=== PATIENT | female | born 1955 | race Caucasian/White ===

== ENCOUNTER 2016-06-04 14:12 | Inpatient (IN) | payer MEDICAID ==
--- NOTE | 2016-06-04 14:44 | EDPRACDOC ---
<Kellen Moe - Last Filed: 06/04/16 16:40> - General Information Information Source: Patient - History of Present Illness Onset: SEVERAL DAYS HPI: PT REPORTS SWELLING, REDNESS, PAIN TO LEFT LOWER LEG X SEVERAL DAYS, NO KNOWN INJURY. Mechanism: Reports: None Circumstances: Reports: Spontaneous History of: Reports: None Severity: Reports: Severe Able to Bear Weight: Limited Associated Signs & Symptoms: Reports: Swelling Pain In: Reports: Leg <Michael Floresson - Last Filed: 06/04/16 17:14> - General Information Chief Complaint: Lower Leg Pain Stated Complaint: REDNESS TO LT LEG DIABETIC Time Seen by Provider: 06/04/16 14:38 Home Medications: Home Medications Albuterol Sulfate [Ventolin Hfa] 1 - 2 puff INH Q4H PRN 06/04/16 Aspirin (Enteric Coated) [Ecotrin] 81 mg PO DAILY 06/04/16 Fluticasone/Salmeterol [Advair 250-50] 1 puff INH BID 06/04/16 Furosemide [Lasix] 20 mg PO DAILY 06/04/16 Lisinopril [Zestril] 2.5 mg PO DAILY 06/04/16 Metformin HCl 1,000 mg PO BID 06/04/16 Potassium Chloride [Klor-Con M10] 10 meq PO DAILY 06/04/16 Simvastatin 40 mg PO QHS 06/04/16 Allergies/Adverse Reactions: Allergies Allergy/AdvReac Type Severity Reaction Status Date / Time No Known Allergies Allergy Verified 06/04/16 14:17 ED Past Medical History - History Reviewed Yes Nurses notes reviewed and agree except as marked - Patient Medical History Cardiac History: Reports: Hypertension, Hypercholesterolemia Respiratory History: Reports: COPD Psychological History: Denies: Depression Systemic History: Reports: Diabetes Surgical History: Reports: Tonsillectomy/Adnoidectomy. Denies: Hysterectomy - Social Medical History Smoking Status: Never smoker ETOH: None Substance Abuse: None <Gonzalo Flores - Last Filed: 06/04/16 17:14> EDM Review of Systems - Review of Systems Constitutional: negative: Chills, Fever Eyes: negative: Blurred Vision, Double Vision Ears: negative: Drainage Throat: negative: Pain Nose: negative: Congestion, Discharge Respiratory: Cough. negative: Shortness of Breath, Wheezing Cardiovascular: negative: Chest Pain, Palpitations Gastrointestinal: negative: Diarrhea, Nausea, Pain, Vomiting Genitourinary: negative: Dysuria, Frequency Neurological: negative: Dizziness, Headache, Numbness, Weakness Musculoskeletal: Leg Integumentary: No Symptoms Reported <Gonzalo Flores - Last Filed: 06/04/16 17:14> - Physical Exam Last recorded Vital Signs: Last Vital Signs Temp 102.2 F H 06/04/16 14:14 Pulse 92 06/04/16 14:14 Resp 20 06/04/16 14:14 BP 202/91 H 06/04/16 14:14 Pulse Ox 95 06/04/16 14:14 Oxygen Pulse Oxygen Saturation 95 O2 Device Nasal Cannula Oxygen Flow Rate 2 Fraction of Inspired Oxygen ( FIO2) <Kellen Moe - Last Filed: 06/04/16 16:40> - Physical Exam Constitutional: Alert (Awake), No apparent distress Oriented to: Time, Person, Place Last recorded Vital Signs: Last Vital Signs Temp 102.2 F H 06/04/16 14:14 Pulse 92 06/04/16 14:14 Resp 20 06/04/16 14:14 BP 202/91 H 06/04/16 14:14 Pulse Ox 95 06/04/16 14:14 Oxygen Pulse Oxygen Saturation 95 O2 Device Nasal Cannula Oxygen Flow Rate 2 Fraction of Inspired Oxygen ( FIO2) - HEENT Head: Normal ( normocephalic) Eye Exam: Normal (PERRL, EOMI, Sclera white) Oropharynx: Normal (Pharynx:Moist without exudate,Gums-no swelling) Tympanic Membrane: Normal ENT EAC: Normal TMJ: Normal Nose: No Symptoms Reported (septum midline) Neck: Normal (FROM, trachea at midline) - Respiratory/Cardiovascular Respiratory: Normal - CTA (BBS clear to auscultation without adventitious sounds ) Cardiovascular: Normal (RRR without murmur, gallop or rub) - GI Auscultation: Normal (NABS) Palpation: Normal (Soft,No rebound or guarding, non distended) Tenderness: Non tender Willett's Sign: Negative - Musculoskeletal Extremities: Edema - Integumentary Skin: Warm, Dry, Other (DIFFUSE ERYTHEMA LEFT LOWER LEG) - Neurologic Memory Impaired: Normal Motor Function: Normal (Normal tone, Pulses 2+ No cyanosis or edema, FROM) Cranial Nerve: Normal (CN II-X11 intact sensation, strength 5/5) Cerebellar: Normal Mood Description: Normal Perception: Normal <Gonzalo Flores - Last Filed: 06/04/16 17:14> ED Low Extremities Phys Exam - Thigh Left Thigh Symptoms: Normal - Knee Left Knee Symptoms: Normal - Lower Leg Left Lower Leg Symptoms: Swelling, Moderate Tenderness, Other (DIFFUSE ERYTHEMA FROM FOOT TO KNEE, MINIMAL CLEAR DISCHARGE) - Foot Left Foot Symptoms: Swelling - Ankle Left Ankle Symptoms: Normal Achilles Tendon: Normal - Deficits Deficits: None, Capillary Refill. negative: Motor, Sensory, Pulse <Gonzalo Flores - Last Filed: 06/04/16 17:14> - Re-evaluation Re-evaluation 1 Re-evaluation Time: 16:41 (FEELING A LITTLE BETTER) - Results 06/04/16 15:35 06/04/16 15:48 WBC 26.9 xk/uL (3.8-10.8) H 06/04/16 15:35 RBC 3.98 xM/uL (4.20-5.40) L 06/04/16 15:35 Hgb 11.8 g/dL (12.0-16.0) L 06/04/16 15:35 Hct 35.1 % (36-47) L 06/04/16 15:35 MCV 88 fL (81-99) 06/04/16 15:35 MCH 29.7 pg (27-32) 06/04/16 15:35 MCHC 33.7 g/dl (33-36) 06/04/16 15:35 RDW 14.6 % (11.5-14.5) H 06/04/16 15:35 Plt Count 207 xk/uL (130-400) 06/04/16 15:35 MPV 10.0 fL (7.4-10.4) 06/04/16 15:35 Sodium 135 mEq/L (137-146) L 06/04/16 15:48 Potassium 4.0 mEq/L (3.5-5.1) 06/04/16 15:48 Chloride 93 mEq/L (98-107) L 06/04/16 15:48 Carbon Dioxide 31 mMOL/L (22-33) 06/04/16 15:48 Anion Gap 15 mEq/L (8-16) 06/04/16 15:48 BUN 18 MG/DL (7-17) H 06/04/16 15:48 Creatinine 0.80 MG/DL (0.52-1.04) 06/04/16 15:48 Estimated GFR (MDRD) > 60 mL/min (>=60) 06/04/16 15:48 Glucose 236 mg/dL (70-99) H 06/04/16 15:48 Calculated Osmolality 270 MOs/Kg (270-290) 06/04/16 15:48 Lactic Acid 1.2 mEq/L (0.7-2.1) 06/04/16 15:48 Calcium 9.0 MG/DL (8.4-10.2) 06/04/16 15:48 Total Bilirubin 1.0 MG/DL (0.2-1.3) 06/04/16 15:48 AST 60 IU/L (14-36) H 06/04/16 15:48 ALT 34 IU/L (9-52) 06/04/16 15:48 Alkaline Phosphatase 106 IU/L (55-165) 06/04/16 15:48 Total Protein 7.5 G/DL (6.3-8.2) 06/04/16 15:48 Albumin 4.0 G/DL (3.5-5.0) 06/04/16 15:48 Lab Results 06/04/16 06/04/16 06/04/16 15:48 15:48 15:35 WBC 26.9 H RBC 3.98 L Hgb 11.8 L Hct 35.1 L MCV 88 MCH 29.7 MCHC 33.7 RDW 14.6 H Plt Count 207 MPV 10.0 Sodium 135 L Potassium 4.0 Chloride 93 L Carbon Dioxide 31 Anion Gap 15 BUN 18 H Creatinine 0.80 Estimated GFR (MDRD) > 60 Glucose 236 H Calculated Osmolality 270 Lactic Acid 1.2 Calcium 9.0 Total Bilirubin 1.0 AST 60 H ALT 34 Alkaline Phosphatase 106 Total Protein 7.5 Albumin 4.0 <Kellen Moe - Last Filed: 06/04/16 16:40> - Differential Diagnosis Other (CELLULITIS, DVT) - Results 06/04/16 15:35 06/04/16 15:48 <Gonzalo Flores - Last Filed: 06/04/16 17:14> - Departure Yes I personally saw and evaluated the patient. Disposition: Admit IP To This Hospital Education/Counseling Given To: Patient Education/Counseling Given Regarding: Diagnosis, Treatment Decision to Admit Time: 16:42 Decision to admit date: 06/04/16 Decision to admit: from ED - Physician Consulted Hospitalist Provider Called: Armand Kelsey <Kellen Moe - Last Filed: 06/04/16 16:40> <Gonzalo Flores - Last Filed: 06/04/16 17:14> - Departure Condition: Fair Final Diagnosis: Cellulitis of left lower extremity, Poorly controlled type 2 diabetes mellitus , Fever Instructions: Managing Diabetes During Sick Days (ED), Diabetes and Exercise Referrals: Dulce Mixon PT SITTER [Primary Care Provider] - One Week Prescriptions: No Action Potassium Chloride [Klor-Con M10] 10 meq PO DAILY Lisinopril [Zestril] 2.5 mg PO DAILY Aspirin (Enteric Coated) [Ecotrin] 81 mg PO DAILY Albuterol Sulfate [Ventolin Hfa] 1 - 2 puff INH Q4H PRN PRN Reason: SHORTNESS OF BREATH Simvastatin 40 mg PO QHS Metformin HCl 1,000 mg PO BID Furosemide [Lasix] 20 mg PO DAILY Fluticasone/Salmeterol [Advair 250-50] 1 puff INH BID Forms: Patient Discharge Instructions, ED Discharge Instructions
[2016-06-04] MEDS ORDERED: SODIUM CHLORIDE 0.9% 10 ML FLUSH FLUSH PRN (14:48)
[2016-06-04] MEDS ORDERED: IBUPROFEN 800 MG TAB PO ONE (14:48)
[2016-06-04] MEDS ORDERED: CEFAZOLIN 1 GM VIAL IV ONE (16:00)
[2016-06-04] MEDS ORDERED: Cefazolin 1gm/50 ml D5W 1 GM/50 ML RTU IV ONE (16:00)
[2016-06-04 16:10] LABS: BLOOD UREA NITROGEN 18 MG/DL (7-17); CALCULATED OSMOLALITY 270 MOs/Kg (270-290); CHLORIDE 93 mEq/L (98-107); GLUCOSE 236 mg/dL (70-99); SODIUM LEVEL 135 mEq/L (137-146); TOTAL PROTEIN 7.5 G/DL (6.3-8.2)
[2016-06-04 16:56] LABS: SEG NEUTROPHIL 81 % (45-76)
[2016-06-04] MEDS ORDERED: ACETAMINOPHEN 650 MG SUPP PR PRN (17:38)
[2016-06-04] MEDS ORDERED: TEMAZEPAM 15 MG CAP PO PRN (17:38)
[2016-06-04] MEDS ORDERED: SIMETHICONE 80 MG TAB PO PRN (17:38)
[2016-06-04] MEDS ORDERED: ACETAMINOPHEN 325 MG/TAB TABLET PO PRN (17:38)
[2016-06-04] MEDS ORDERED: SODIUM CHLORIDE 0.9% 3 ML FLUSH FLUSH PRN (17:38)
[2016-06-04] MEDS ORDERED: METOCLOPRAMIDE 10 MG/2 ML VIAL IV PRN (17:38)
[2016-06-04] MEDS ORDERED: GLUCAGON 1 MG VIAL SQ PRN (17:38)
[2016-06-04] MEDS ORDERED: DOCUSATE-SENNA CONCENTRATE TAB PO PRN (17:38)
[2016-06-04] MEDS ORDERED: GLUCOSE (ORAL GEL) 15 GM TUBE PO PRN (17:38)
[2016-06-04] MEDS ORDERED: DEXTROSE 25 GM/50 ML PFS IV PRN (17:38)
[2016-06-04] MEDS ORDERED: ONDANSETRON HCL 4 MG/2 ML VIAL IV PRN (17:38)
[2016-06-04] MEDS ORDERED: BENZONATATE 100 MG PERLES PO PRN (17:38)
[2016-06-04] MEDS: SODIUM CHLORIDE 0.9% 3 ML FLUSH FLUSH SCH (18:22)
[2016-06-04] MEDS: NS 1,000 ML IV SCH (18:22)
[2016-06-04] MEDS: REGULAR INSULIN 100 UNITS/ML - 3 ML VIAL SQ SCH (20:27)
[2016-06-04] MEDS: ENOXAPARIN 60 MG/0.6 ML PFS SQ SCH (20:44)
--- NOTE | 2016-06-04 21:40 | HISTPHYS ---
- Chief Complaint rash on left leg - History of Present Illness Mindy Green is an obese 60 year old woman with a history of diabetes for the past three years who states that three days ago she developed a red rash on the top of her left foot. It was sore and burning her. Then last night and today it progressed rapidly up her left leg to involve most of her left calf and tibial area. It is very painful. She states nothing like this has ever happened to her before. She denies any injury or trauma. - Medical History Cardiac History: Reports: Hypertension, Congestive Heart Failure, Hypercholesterolemia Respiratory History: Reports: No Significant History, COPD GI/ History: Reports: No Significant History, Gastroesophageal Reflux Musculoskeletal History: Reports: Osteoarthritis Systemic History: Reports: Diabetes. Denies: Hypothyroidism Neurological History: Reports: No Significant History Psychological History: Reports: No Significant History. Denies: Depression, Alcoholism, Substance Use Disorder - Surgical History Reports: Tonsillectomy/Adnoidectomy - Medictions/Allergies Allergies No Known Allergies Allergy (Verified 06/04/16 14:17) Current Medication List: Reviewed Home Medications Albuterol Sulfate [Ventolin Hfa] 1 - 2 puff INH Q4H PRN 06/04/16 Aspirin (Enteric Coated) [Ecotrin] 81 mg PO DAILY 06/04/16 Fluticasone/Salmeterol [Advair 250-50] 1 puff INH BID 06/04/16 Furosemide [Lasix] 20 mg PO DAILY 06/04/16 Lisinopril [Zestril] 2.5 mg PO DAILY 06/04/16 Metformin HCl 1,000 mg PO BID 06/04/16 Potassium Chloride [Klor-Con M10] 10 meq PO DAILY 06/04/16 Simvastatin 40 mg PO QHS 06/04/16 - Family History Reports: Hypertension (MOTHER), Diabetes (MOTHER), Cardiac Disorders (FATHER) - Social History Travel Outside of [place] in the Last 3 Months?: No Lives: With Family (brother) Smoking Status: Never smoker Social History: Denies: Alcohol Use - Review of Systems Constitutional: Fatigue, Weakness. negative: Chills, Fever Eyes: No Symptoms Reported. negative: Vision Loss Ears: No Symptoms Reported Nose: No Symptoms Reported Mouth: Dry Mouth Throat/Neck: No Symptoms Reported, Snoring. negative: Hoarseness Respiratory: No Symptoms Reported. negative: Shortness of Breath, Wheezing, Dyspnea Cardiovascular: Edema. negative: Chest Pain, Orthopnea, Palpitations Gastrointestinal: Heartburn. negative: Nausea, Vomiting, Melena Genitourinary: Frequency, Nocturia, Postmenopause. negative: Dysuria Neurological: Gait Difficulty. negative: Dizziness, Weakness Musculoskeletal:: Osteoarthritis, Stiffness, Joint Pain, Muscle Pain (left leg) , Swelling Integumentary: Rash (left leg) Allergic/Immunologic: No Symptoms Reported Hematologic: No Symptoms Reported Endocrine: Heat Intolerance, Polyuria, Diabetes. negative: Weight Gain, Weight Loss, Excessive Thirst, Excessive Hunger, Hypothyroidism Psychiatric: negative: Anxiety, Depression, Insomnia - Physical Exam Vital Signs: Initial Vitals Temperature 102.2 F H 06/04/16 14:14 Pulse Rate 92 06/04/16 14:14 Respiratory Rate 20 06/04/16 14:14 Blood Pressure 202/91 H 06/04/16 14:14 Pulse Oxygen Saturation 95 06/04/16 14:14 Constitutional: No apparent distress, Alert Oriented to: Time, Person, Place - HEENT Head: Normal Eye: Normal (PERRL: EOMI) Oropharynx: Normal. negative: Drooling, Exudate, Red Tympanic Membrane: Normal ENT EAC: Normal TMJ: Normal Nose: negative: Bleeding, Congestion, Discharge Respiratory: Normal - CTA, Diminished Cardiovascular: Tachycardia - GI Auscultation: Normal Palpation: Normal Tenderness: Non tender Willett's Sign: Negative Rectal Exam: Deferred - Musculoskeletal Back: Normal Extremities: Pedal Pulse (normal), Other (erythematous indurated confluent rash from dorsum of L foot to proximal tibia, encircles most of calf, sharply demarcated, tender to touch). negative: Edema (none on right leg, no rash on right leg) Spine: non-tender, full range of motion, normal alignment, normal inspection - Integumentary Skin: Warm, Dry, Rash (erythematous indurated confluent rash from dorsum of L foot to proximal tibia, encircles most of calf, sharply demarcated, tender to touch) Lymphatics: Normal - Neurologic Memory Impaired: Normal Motor Function: Normal Cranial Nerve: Normal Cerebellar: Normal Mood Description: Anxious Thought: Coherent Perception: Normal - Focused CV Perfusion Exam Vital Signs: Last Vital Signs Temp 97.9 F 06/04/16 18:15 Pulse 68 06/04/16 18:15 Resp 18 06/04/16 18:15 BP 126/53 L 06/04/16 18:15 Pulse Ox 96 06/04/16 18:15 - Lab Results Laboratory Tests 06/04/16 06/04/16 06/04/16 15:35 15:35 15:48 WBC 26.9 H Hgb 11.8 L Hct 35.1 L RDW 14.6 H Plt Count 207 Seg Neuts % (Manual) 81 H Band Neutrophils % 8 H Lymphocytes % (Manual) 6 L Monocytes % (Manual) 4 Eosinophils % (Manual) 1 Sodium 135 L Potassium 4.0 Chloride 93 L Carbon Dioxide 31 Anion Gap 15 BUN 18 H Creatinine 0.80 Estimated GFR (MDRD) > 60 Glucose 236 H POC Capillary Glucose Hemoglobin A1c 7.9 H Calculated Osmolality 270 Lactic Acid Calcium 9.0 Total Bilirubin 1.0 AST 60 H ALT 34 Alkaline Phosphatase 106 Total Protein 7.5 Albumin 4.0 06/04/16 06/04/16 15:48 20:27 WBC Hgb Hct RDW Plt Count Seg Neuts % (Manual) Band Neutrophils % Lymphocytes % (Manual) Monocytes % (Manual) Eosinophils % (Manual) Sodium Potassium Chloride Carbon Dioxide Anion Gap BUN Creatinine Estimated GFR (MDRD) Glucose POC Capillary Glucose 384 H Hemoglobin A1c Calculated Osmolality Lactic Acid 1.2 Calcium Total Bilirubin AST ALT Alkaline Phosphatase Total Protein Albumin - Assessment (1) Cellulitis of left lower extremity L03.116 - CELLULITIS OF LEFT LOWER LIMB Acute Present on Admission: Yes Admit, obtain blood cultures and begin IV fluids and IV antibiotics with Unasyn and vancomycin. Follow clinical course. (2) Poorly controlled type 2 diabetes mellitus E11.65 - TYPE 2 DIABETES MELLITUS WITH HYPERGLYCEMIA Acute Present on Admission: Yes Patient c/o that her metformin was too strong, so she was only taking 500 mg daily instead of 1000 mg BID; will try 1000 mg once a day. 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 (3) Hypertension I10 - ESSENTIAL (PRIMARY) HYPERTENSION Acute Present on Admission: Yes Qualifiers: Hypertension type: essential hypertension Qualified Code(s): I10 - Essential (primary) hypertension continue lisinopril 2.5 mg daily and monitor dose response and renal function (4) Hyperlipidemia E78.5 - HYPERLIPIDEMIA, UNSPECIFIED Chronic Present on Admission: Yes Qualifiers: Hyperlipidemia type: mixed hyperlipidemia Qualified Code(s): E78.2 - Mixed hyperlipidemia She is currently on Simvastatin- will continue this for now, check fasting lipid profile. (5) Hyperlipidemia associated with type 2 diabetes mellitus E11.69 - TYPE 2 DIABETES MELLITUS WITH OTHER SPECIFIED COMPLICATION; E78.5 - HYPERLIPIDEMIA, UNSPECIFIED Chronic Present on Admission: Yes
[2016-06-04] MEDS ORDERED: ALBUTEROL 6.7 GM MDI INH PRN (21:52)
[2016-06-04] MEDS ORDERED: FLUTICASONE/SALMETEROL 250/50 DISKUS INH SCH (22:00)
[2016-06-04] MEDS: AMPICILLIN-SULBACTAM 3 GM in NS 100 ML IV SCH (22:48)
[2016-06-05] MEDS: AMPICILLIN-SULBACTAM 3 GM in NS 100 ML IV SCH ×4 (04:28→21:13)
[2016-06-05] MEDS: SODIUM CHLORIDE 0.9% 3 ML FLUSH FLUSH SCH ×2 (05:11→17:44)
[2016-06-05] MEDS: REGULAR INSULIN 100 UNITS/ML - 3 ML VIAL SQ SCH ×4 (05:51→21:13)
[2016-06-05] MEDS: MetFORMIN, EXT REL 500 MG TAB PO SCH (06:10)
[2016-06-05 07:29] LABS: MPV 8.6 fL (7.4-10.4)
[2016-06-05] MEDS: LISINOPRIL 2.5 MG TAB PO SCH (07:32)
[2016-06-05 07:50] LABS: BLOOD UREA NITROGEN 21 MG/DL (7-17); CALCIUM 8.4 MG/DL (8.4-10.2); CALCULATED OSMOLALITY 275 MOs/Kg (270-290); CHLORIDE 96 mEq/L (98-107); GLUCOSE 166 mg/dL (70-99); SODIUM LEVEL 139 mEq/L (137-146)
[2016-06-05] MEDS: FUROSEMIDE 20 MG TAB PO SCH (07:54)
[2016-06-05] MEDS: POTASSIUM CHLORIDE 10 MEQ TABLET PO SCH (07:54)
[2016-06-05] MEDS: FLUTICASONE/SALMETEROL 250/50 DISKUS INH SCH ×2 (07:58→19:35)
[2016-06-05] MEDS ORDERED: PNEUMOCOCCAL 0.5 ML VIAL IM ONE (08:00)
[2016-06-05] MEDS ORDERED: FLU VACCINE (Afluria) 0.5 ML DOSE IM ONE (08:00)
[2016-06-05] MEDS: NS 1,000 ML IV SCH ×3 (09:15→21:14)
[2016-06-05] MEDS ORDERED: Vancomycin HCl 0 MG in D5W 500 ML IV SCH (09:51)
[2016-06-05 11:22] LABS: LEUKOCYTES/URINE 2+ (NEGATIVE); NITRITE/URINE NEG (NEGATIVE); URINE OCCULT BLOOD 1+ (NEG/TRACE); WBC/URINE TNTC (0-5)
--- NOTE | 2016-06-05 13:26 | GENMEDPROG ---
Chief Complaint: CELLULITIS LLE, DM-2, HTN, hyperlipidemia Currently: Reports: Other (LLE pain). Denies: Cough, ZENG, SOB, Tobacco Use/Hx, Alcohol Hx, Abdominal Pain - Physical Examination Vital Signs and I&O: Last Vital Signs Temp 98.2 F 06/05/16 05:48 Pulse 78 06/05/16 05:48 Resp 18 06/05/16 05:48 BP 112/52 L 06/05/16 05:48 Pulse Ox 94 06/05/16 08:02 Oxygen Pulse Oxygen Saturation 94 O2 Device Nasal Cannula Oxygen Flow Rate 2 Fraction of Inspired Oxygen ( FIO2) Intake & Output 06/02/16 06/03/16 06/04/16 06/05/16 23:59 23:59 23:59 23:59 Intake Total 526 1847 Output Total 100 475 Balance 426 1372 Patient's weight 115.836 kg General: Alert, Oriented x3, Cooperative, No acute distress, Obese HEENT: Normal, PERRLA, EOMI, Anicteric Sclera, Mucous membr. moist/pink Neck: Non-tender, Full range of motion, Normal Trachea alignment, Normal inspection, No Masses palpable, Supple Lymphatics: Normal Respiratory: Normal - CTA, Diminished Cardiovascular: Regular rate and rhythm, Normal S1, Normal S2, Good Pedal Pulses , PMI Not Lateralized, Chest Non Tender GI: Normal bowel sounds, Soft, Non tender, Obese Extremities/Musculoskeletal: Normal pulses, Edema, DJD Skin: Rash (persistent erythema and induration in circumferential fashion from ankle to proximal tibia on LLE) Neurological: Normal speech, Strength at 5/5 X4 ext, Normal tone, Cranial nerves 3-12 NL Psych/Mental Status: Appropriate, Normal Affect, Cooperative Lab/DI/Studies Reviewed: Laboratory Tests 06/05/16 06/05/16 06/05/16 06:40 06:40 11:00 WBC 14.9 H Hgb 10.9 L Hct 32.1 L Plt Count 185 Sodium 139 Potassium 3.8 Chloride 96 L Carbon Dioxide 33 Anion Gap 14 BUN 21 H Creatinine 1.00 Estimated GFR (MDRD) 56 L Glucose 166 H Calculated Osmolality 275 Calcium 8.4 Triglycerides 135 Cholesterol 108 LDL Cholesterol, Calc 50.0 HDL Cholesterol 31.0 L Cholesterol/HDL Ratio 3.5 Urine Color Yellow Urine Clarity Cldy Urine pH 5.0 Ur Specific [place] 1.015 Urine Protein 2+ H Urine Glucose (UA) Trace Urine Ketones Neg Urine Nitrite Neg Urine RBC 2-5 Urine WBC Tntc H Urine Bacteria 1+ H - Assessment (1) Cellulitis of left lower extremity Acute L03.116 - CELLULITIS OF LEFT LOWER LIMB Comment/Plan: Follow blood cultures and continue IV fluids and IV antibiotics with Unasyn and vancomycin. Follow clinical course. (2) Poorly controlled type 2 diabetes mellitus Acute E11.65 - TYPE 2 DIABETES MELLITUS WITH HYPERGLYCEMIA Comment/Plan: Patient c/o that her metformin was too strong, so she was only taking 500 mg daily instead of 1000 mg BID; will try 1000 mg once a day. 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 FSBS range from 143-291. Suspect this is average for this patient. Continue moderate dose SSI. Will increase metformin after a few more days, to avoid adverse effects. (3) Hypertension Acute I10 - ESSENTIAL (PRIMARY) HYPERTENSION Qualifiers: Hypertension type: essential hypertension Qualified Code(s): I10 - Essential (primary) hypertension Comment/Plan: Continue lisinopril 2.5 mg daily and monitor dose response and renal function; BP remains controlled, suspect patient is taking it for renal protection rather than for HTN. (4) Hyperlipidemia Chronic E78.5 - HYPERLIPIDEMIA, UNSPECIFIED Qualifiers: Hyperlipidemia type: mixed hyperlipidemia Qualified Code(s): E78.2 - Mixed hyperlipidemia Comment/Plan: She is currently on Simvastatin- will continue this for now, check fasting lipid profile. (5) Hyperlipidemia associated with type 2 diabetes mellitus Chronic E11.69 - TYPE 2 DIABETES MELLITUS WITH OTHER SPECIFIED COMPLICATION; E78.5 - HYPERLIPIDEMIA, UNSPECIFIED
[2016-06-05] MEDS: ENOXAPARIN 60 MG/0.6 ML PFS SQ SCH (17:44)
[2016-06-05] MEDS: SIMVASTATIN 40 MG TAB PO SCH (21:13)
[2016-06-06] MEDS: AMPICILLIN-SULBACTAM 3 GM in NS 100 ML IV SCH ×4 (03:02→20:49)
[2016-06-06 04:11] LABS: BLOOD UREA NITROGEN 18 MG/DL (7-17); CALCIUM 8.2 MG/DL (8.4-10.2); CALCULATED OSMOLALITY 274 MOs/Kg (270-290); CHLORIDE 99 mEq/L (98-107); GLUCOSE 116 mg/dL (70-99); SODIUM LEVEL 141 mEq/L (137-146)
[2016-06-06] MEDS: SODIUM CHLORIDE 0.9% 3 ML FLUSH FLUSH SCH ×2 (04:26→18:04)
[2016-06-06] MEDS: REGULAR INSULIN 100 UNITS/ML - 3 ML VIAL SQ SCH ×4 (05:48→20:48)
[2016-06-06] MEDS: MetFORMIN, EXT REL 500 MG TAB PO SCH (05:49)
[2016-06-06] MEDS ORDERED: FLU VACCINE (Afluria) 0.5 ML DOSE IM ONE (08:00)
[2016-06-06] MEDS ORDERED: PNEUMOCOCCAL 0.5 ML VIAL IM ONE (08:00)
[2016-06-06] MEDS: FLUTICASONE/SALMETEROL 250/50 DISKUS INH SCH ×2 (08:44→19:48)
[2016-06-06] MEDS: LISINOPRIL 2.5 MG TAB PO SCH (08:50)
[2016-06-06] MEDS: POTASSIUM CHLORIDE 10 MEQ TABLET PO SCH (08:50)
[2016-06-06] MEDS: FUROSEMIDE 20 MG TAB PO SCH (08:50)
--- NOTE | 2016-06-06 11:39 | GENMEDPROG ---
Currently: Reports: Other (LLE pain). Denies: Cough, ZENG, SOB, Tobacco Use/Hx, Alcohol Hx, Abdominal Pain - Physical Examination Vital Signs and I&O: Last Vital Signs Temp 98.6 F 06/06/16 05:43 Pulse 67 06/06/16 05:43 Resp 18 06/06/16 05:43 BP 130/66 06/06/16 05:43 Pulse Ox 92 06/06/16 08:47 Oxygen Pulse Oxygen Saturation 92 O2 Device Nasal Cannula Oxygen Flow Rate 2 Fraction of Inspired Oxygen ( FIO2) Intake & Output 06/03/16 06/04/16 06/05/16 06/06/16 23:59 23:59 23:59 23:59 Intake Total 526 3718 1713 Output Total 100 1525 950 Balance 426 2193 763 Patient's weight 115.836 kg 116.772 kg General: Alert, Oriented x3, Cooperative, No acute distress, Obese HEENT: Normal, PERRLA, EOMI, Anicteric Sclera, Mucous membr. moist/pink Neck: Non-tender, Full range of motion, Normal Trachea alignment, Normal inspection, No Masses palpable, Supple Lymphatics: Normal Respiratory: Normal - CTA, Diminished Cardiovascular: Regular rate and rhythm, Normal S1, Normal S2, Good Pedal Pulses , PMI Not Lateralized, Chest Non Tender GI: Normal bowel sounds, Soft, Non tender, Obese Extremities/Musculoskeletal: Normal pulses, Edema, DJD Skin: Rash (persistent erythema and induration in circumferential fashion from ankle to proximal tibia on LLE) Neurological: Normal speech, Strength at 5/5 X4 ext, Normal tone, Cranial nerves 3-12 NL Psych/Mental Status: Appropriate, Normal Affect, Cooperative Lab/DI/Studies Reviewed: Laboratory Tests 06/06/16 06/06/16 06/06/16 02:55 02:55 05:31 Sodium 141 Potassium 3.8 Chloride 99 Carbon Dioxide 31 Anion Gap 15 BUN 18 H Creatinine 1.00 Estimated GFR (MDRD) 56 L Glucose 116 H POC Capillary Glucose 160 H Calculated Osmolality 274 Calcium 8.2 L Vancomycin Trough 14.3 - Assessment (1) Cellulitis of left lower extremity Acute L03.116 - CELLULITIS OF LEFT LOWER LIMB Comment/Plan: continues to have erythema and induration of leg. Follow blood cultures and continue IV fluids and IV antibiotics with Unasyn and vancomycin. Follow clinical course. (2) Poorly controlled type 2 diabetes mellitus Acute E11.65 - TYPE 2 DIABETES MELLITUS WITH HYPERGLYCEMIA Comment/Plan: Patient c/o that her metformin was too strong, so she was only taking 500 mg daily instead of 1000 mg BID; will try 1000 mg once a day. 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 FSBS range from 143-291. Suspect this is average for this patient. Continue moderate dose SSI. Will increase metformin after a few more days, to avoid adverse effects. (3) Hypertension Acute I10 - ESSENTIAL (PRIMARY) HYPERTENSION Qualifiers: Hypertension type: essential hypertension Qualified Code(s): I10 - Essential (primary) hypertension Comment/Plan: Continue lisinopril 2.5 mg daily and monitor dose response and renal function; BP remains controlled, suspect patient is taking it for renal protection rather than for HTN. (4) Hyperlipidemia Chronic E78.5 - HYPERLIPIDEMIA, UNSPECIFIED Qualifiers: Hyperlipidemia type: mixed hyperlipidemia Qualified Code(s): E78.2 - Mixed hyperlipidemia Comment/Plan: She is currently on Simvastatin- will continue this for now, check fasting lipid profile. (5) Hyperlipidemia associated with type 2 diabetes mellitus Chronic E11.69 - TYPE 2 DIABETES MELLITUS WITH OTHER SPECIFIED COMPLICATION; E78.5 - HYPERLIPIDEMIA, UNSPECIFIED
[2016-06-06] MEDS: ENOXAPARIN 60 MG/0.6 ML PFS SQ SCH (18:03)
[2016-06-06] MEDS: NS 1,000 ML IV SCH ×2 (18:04→20:49)
[2016-06-06] MEDS: SIMVASTATIN 40 MG TAB PO SCH (20:48)
[2016-06-07] MEDS: AMPICILLIN-SULBACTAM 3 GM in NS 100 ML IV SCH ×4 (02:41→21:12)
[2016-06-07] MEDS: SODIUM CHLORIDE 0.9% 3 ML FLUSH FLUSH SCH ×2 (04:05→19:00)
[2016-06-07] MEDS: REGULAR INSULIN 100 UNITS/ML - 3 ML VIAL SQ SCH ×4 (05:56→21:25)
[2016-06-07] MEDS: MetFORMIN, EXT REL 500 MG TAB PO SCH (05:56)
[2016-06-07] MEDS: FLUTICASONE/SALMETEROL 250/50 DISKUS INH SCH ×2 (08:01→19:38)
[2016-06-07] MEDS: POTASSIUM CHLORIDE 10 MEQ TABLET PO SCH (09:26)
[2016-06-07] MEDS: FUROSEMIDE 20 MG TAB PO SCH (09:38)
[2016-06-07] MEDS: LISINOPRIL 2.5 MG TAB PO SCH (09:38)
--- NOTE | 2016-06-07 14:51 | GENMEDPROG ---
Currently: Reports: Other (LLE pain). Denies: Cough, ZENG, SOB, Tobacco Use/Hx, Alcohol Hx, Abdominal Pain - Physical Examination Vital Signs and I&O: Last Vital Signs Temp 98.5 F 06/07/16 13:58 Pulse 65 06/07/16 13:58 Resp 18 06/07/16 13:58 BP 113/56 L 06/07/16 13:58 Pulse Ox 96 06/07/16 13:58 Oxygen Pulse Oxygen Saturation 96 O2 Device Nasal Cannula Oxygen Flow Rate 2 Fraction of Inspired Oxygen ( FIO2) Intake & Output 06/04/16 06/05/16 06/06/16 06/07/16 23:59 23:59 23:59 23:59 Intake Total 526 3718 2650 2524 Output Total 100 1525 2700 2050 Balance 426 2193 -50 474 Patient's weight 115.836 kg 116.772 kg 116.828 kg General: Alert, Oriented x3, Cooperative, No acute distress, Obese HEENT: Normal, PERRLA, EOMI, Anicteric Sclera, Mucous membr. moist/pink Neck: Non-tender, Full range of motion, Normal Trachea alignment, Normal inspection, No Masses palpable, Supple Lymphatics: Normal Respiratory: Normal - CTA, Diminished Cardiovascular: Regular rate and rhythm, Normal S1, Normal S2, Good Pedal Pulses , PMI Not Lateralized, Chest Non Tender GI: Normal bowel sounds, Soft, Non tender, Obese Extremities/Musculoskeletal: Normal pulses, Edema, DJD, Other (minimal improvement in rash yet) Skin: Rash (persistent erythema and induration in circumferential fashion from ankle to proximal tibia on LLE) Neurological: Normal speech, Strength at 5/5 X4 ext, Normal tone, Cranial nerves 3-12 NL Psych/Mental Status: Appropriate, Normal Affect, Cooperative - Assessment (1) Cellulitis of left lower extremity Acute L03.116 - CELLULITIS OF LEFT LOWER LIMB Comment/Plan: continues to have erythema and induration of leg. Blood cultures negative to date, continue IV fluids, IV Unasyn and vancomycin. Follow clinical course. (2) Poorly controlled type 2 diabetes mellitus Acute E11.65 - TYPE 2 DIABETES MELLITUS WITH HYPERGLYCEMIA Comment/Plan: Patient c/o that her metformin was too strong, so she was only taking 500 mg daily instead of 1000 mg BID; will try 1000 mg once a day. Add Januvia also. Her Hg A1c is elevated,(7.9) suggesting terminologist poor control. FSBS range from 143-291. Suspect this is average for this patient. Continue moderate dose SSI. (3) Hypertension Acute I10 - ESSENTIAL (PRIMARY) HYPERTENSION Qualifiers: Hypertension type: essential hypertension Qualified Code(s): I10 - Essential (primary) hypertension Comment/Plan: Continue lisinopril 2.5 mg daily and monitor dose response and renal function; BP remains controlled, suspect patient is taking it for renal protection rather than for HTN. (4) Hyperlipidemia Chronic E78.5 - HYPERLIPIDEMIA, UNSPECIFIED Qualifiers: Hyperlipidemia type: mixed hyperlipidemia Qualified Code(s): E78.2 - Mixed hyperlipidemia Comment/Plan: She is currently on Simvastatin- will continue this for now, check fasting lipid profile. (5) Hyperlipidemia associated with type 2 diabetes mellitus Chronic E11.69 - TYPE 2 DIABETES MELLITUS WITH OTHER SPECIFIED COMPLICATION; E78.5 - HYPERLIPIDEMIA, UNSPECIFIED
[2016-06-07] MEDS: ENOXAPARIN 60 MG/0.6 ML PFS SQ SCH (17:32)
[2016-06-07] MEDS: NS 1,000 ML IV SCH ×2 (19:00→19:27)
[2016-06-07] MEDS: SIMVASTATIN 40 MG TAB PO SCH (21:10)
[2016-06-08] MEDS: AMPICILLIN-SULBACTAM 3 GM in NS 100 ML IV SCH ×4 (03:28→21:06)
[2016-06-08] MEDS: SODIUM CHLORIDE 0.9% 3 ML FLUSH FLUSH SCH ×2 (04:26→17:57)
[2016-06-08] MEDS: REGULAR INSULIN 100 UNITS/ML - 3 ML VIAL SQ SCH ×4 (06:37→21:05)
[2016-06-08] MEDS: MetFORMIN, EXT REL 500 MG TAB PO SCH (06:38)
[2016-06-08] MEDS: SITAGLIPTIN 50 MG TAB PO SCH (06:40)
[2016-06-08] MEDS: FLUTICASONE/SALMETEROL 250/50 DISKUS INH SCH ×2 (08:35→19:21)
[2016-06-08] MEDS: POTASSIUM CHLORIDE 10 MEQ TABLET PO SCH (09:22)
[2016-06-08] MEDS: FUROSEMIDE 20 MG TAB PO SCH (09:23)
[2016-06-08] MEDS: LISINOPRIL 2.5 MG TAB PO SCH (09:23)
[2016-06-08] MEDS: NS 1,000 ML IV SCH ×2 (13:19→17:57)
--- NOTE | 2016-06-08 15:15 | GENMEDPROG ---
Chief Complaint: cellulitis of LLE, DM-2, HTN, obesity, hyperlipidemia Currently: Reports: Other (LLE pain). Denies: Cough, ZENG, SOB, Tobacco Use/Hx, Alcohol Hx, Abdominal Pain - Physical Examination Vital Signs and I&O: Last Vital Signs Temp 98.3 F 06/08/16 13:33 Pulse 63 06/08/16 13:33 Resp 18 06/08/16 13:33 BP 114/54 L 06/08/16 13:33 Pulse Ox 96 06/08/16 13:33 Oxygen Pulse Oxygen Saturation 96 O2 Device Nasal Cannula Oxygen Flow Rate 2 Fraction of Inspired Oxygen ( FIO2) Intake & Output 06/05/16 06/06/16 06/07/16 06/08/16 23:59 23:59 23:59 23:59 Intake Total 3711 2650 4265 2014 Output Total 1525 2700 3750 1550 Balance 2193 -50 515 465 Patient's weight 115.836 kg 116.772 kg 116.828 kg General: Alert, Oriented x3, Cooperative, No acute distress, Obese HEENT: Normal, PERRLA, EOMI, Anicteric Sclera, Mucous membr. moist/pink Neck: Non-tender, Full range of motion, Normal Trachea alignment, Normal inspection, No Masses palpable, Supple Lymphatics: Normal Respiratory: Normal - CTA, Diminished Cardiovascular: Regular rate and rhythm, Normal S1, Normal S2, Good Pedal Pulses , PMI Not Lateralized, Chest Non Tender GI: Normal bowel sounds, Soft, Non tender, Obese Extremities/Musculoskeletal: Normal pulses, Edema, DJD, Other (minimal improvement in rash yet) Skin: Rash (persistent erythema and induration in circumferential fashion from ankle to proximal tibia on LLE) Neurological: Normal speech, Strength at 5/5 X4 ext, Normal tone, Cranial nerves 3-12 NL Psych/Mental Status: Appropriate, Normal Affect, Cooperative - Assessment (1) Cellulitis of left lower extremity Acute L03.116 - CELLULITIS OF LEFT LOWER LIMB Comment/Plan: Gradually improving. Continues to have erythema and induration of leg. Blood cultures negative to date, continue IV fluids, IV Unasyn and vancomycin. Follow clinical course. (2) Poorly controlled type 2 diabetes mellitus Acute E11.65 - TYPE 2 DIABETES MELLITUS WITH HYPERGLYCEMIA Comment/Plan: Patient c/o that her metformin was too strong, so she was only taking 500 mg daily instead of 1000 mg BID; will try 1000 mg once a day. Add Januvia also. Her Hg A1c is elevated,(7.9) suggesting ferry terminal agent poor control. FSBS range from 143-291. Suspect this is average for this patient. Continue moderate dose SSI. (3) Hypertension Acute I10 - ESSENTIAL (PRIMARY) HYPERTENSION Qualifiers: Hypertension type: essential hypertension Qualified Code(s): I10 - Essential (primary) hypertension Comment/Plan: Continue lisinopril 2.5 mg daily and monitor dose response and renal function; BP remains controlled, suspect patient is taking it for renal protection rather than for HTN. (4) Hyperlipidemia Chronic E78.5 - HYPERLIPIDEMIA, UNSPECIFIED Qualifiers: Hyperlipidemia type: mixed hyperlipidemia Qualified Code(s): E78.2 - Mixed hyperlipidemia Comment/Plan: She is currently on Simvastatin- will continue this for now, check fasting lipid profile. (5) Hyperlipidemia associated with type 2 diabetes mellitus Chronic E11.69 - TYPE 2 DIABETES MELLITUS WITH OTHER SPECIFIED COMPLICATION; E78.5 - HYPERLIPIDEMIA, UNSPECIFIED
[2016-06-08] MEDS ORDERED: CHAPSTICK LIP BALM ONE (16:13)
[2016-06-08] MEDS: ENOXAPARIN 60 MG/0.6 ML PFS SQ SCH (17:58)
[2016-06-08] MEDS: SIMVASTATIN 40 MG TAB PO SCH (21:04)
[2016-06-09] MEDS: AMPICILLIN-SULBACTAM 3 GM in NS 100 ML IV SCH ×4 (03:30→21:13)
[2016-06-09] MEDS: SODIUM CHLORIDE 0.9% 3 ML FLUSH FLUSH SCH ×2 (05:45→17:40)
[2016-06-09 07:44] LABS: BLOOD UREA NITROGEN 17 MG/DL (7-17); CALC CORRECTED 9.2 MG/DL (8.4-10.2); CALCIUM 7.8 MG/DL (8.4-10.2); CALCULATED OSMOLALITY 276 MOs/Kg (270-290); CHLORIDE 102 mEq/L (98-107); GLUCOSE 197 mg/dL (70-99); SODIUM LEVEL 140 mEq/L (137-146); TOTAL PROTEIN 5.4 G/DL (6.3-8.2)
[2016-06-09] MEDS: MetFORMIN, EXT REL 500 MG TAB PO SCH (08:23)
[2016-06-09] MEDS: SITAGLIPTIN 50 MG TAB PO SCH (08:23)
[2016-06-09] MEDS: REGULAR INSULIN 100 UNITS/ML - 3 ML VIAL SQ SCH ×4 (08:24→21:14)
[2016-06-09] MEDS: POTASSIUM CHLORIDE 10 MEQ TABLET PO SCH (08:24)
[2016-06-09] MEDS: FUROSEMIDE 20 MG TAB PO SCH (08:24)
[2016-06-09] MEDS: LISINOPRIL 2.5 MG TAB PO SCH (08:24)
[2016-06-09] MEDS: FLUTICASONE/SALMETEROL 250/50 DISKUS INH SCH ×2 (09:11→19:37)
[2016-06-09] MEDS: NS 1,000 ML IV SCH ×2 (09:57→17:40)
--- NOTE | 2016-06-09 15:05 | GENMEDPROG ---
Subjective Note: 60-year-old female admitted to our facility 5 days ago with cellulitis of the left lower extremity. She has had a very slow improvement. Left lower extremity continues to have bullae and dark rubor Notes Reviewed: Yes: Events from last night noted and discussed with Clinical Staff Current Medication List: Reviewed Currently: Reports: Other (LLE pain). Denies: Cough, ZENG, SOB, Tobacco Use/Hx, Alcohol Hx, Abdominal Pain DVT Prophylaxis: Yes - Physical Examination Vital Signs and I&O: Last Vital Signs Temp 98.5 F 06/09/16 14:13 Pulse 69 06/09/16 14:13 Resp 18 06/09/16 14:13 BP 119/53 L 06/09/16 14:13 Pulse Ox 96 06/09/16 14:13 Oxygen Pulse Oxygen Saturation 96 O2 Device Nasal Cannula Oxygen Flow Rate 2 Fraction of Inspired Oxygen ( FIO2) Intake & Output 06/06/16 06/07/16 06/08/16 06/09/16 23:59 23:59 23:59 23:59 Intake Total 2650 4265 2890 1696 Output Total 2700 3750 1950 1900 Balance -50 515 940 -204 Patient's weight 116.772 kg 116.828 kg 117.027 kg General: Alert, Oriented x3, Cooperative, No acute distress, Obese HEENT: Normal, PERRLA, EOMI, Anicteric Sclera, Mucous membr. moist/pink Neck: Non-tender, Full range of motion, Normal Trachea alignment, Normal inspection, No Masses palpable, Supple Lymphatics: Normal Respiratory: Normal - CTA, Diminished Cardiovascular: Regular rate and rhythm, Normal S1, Normal S2, Good Pedal Pulses , PMI Not Lateralized, Chest Non Tender GI: Normal bowel sounds, Soft, Non tender, Obese Extremities/Musculoskeletal: Normal pulses, Edema, DJD, Other (minimal improvement in rash yet) Skin: Rash (persistent erythema and induration in circumferential fashion from ankle to proximal tibia on LLE) Neurological: Normal speech, Strength at 5/5 X4 ext, Normal tone, Cranial nerves 3-12 NL Psych/Mental Status: Appropriate, Normal Affect, Cooperative Lab/DI/Studies Reviewed: Laboratory Results - last 24 hr 06/08/16 06/08/16 06/08/16 06:36 16:22 20:37 Sodium Potassium Chloride Carbon Dioxide Anion Gap BUN Creatinine Estimated GFR (MDRD) Glucose POC Capillary Glucose 209 H 140 H 173 H Calculated Osmolality Calcium Corrected Calcium Total Bilirubin AST ALT Alkaline Phosphatase Total Protein Albumin 06/09/16 06/09/16 06/09/16 05:41 06:45 11:05 Sodium 140 Potassium 3.9 Chloride 102 Carbon Dioxide 29 Anion Gap 13 BUN 17 Creatinine 1.00 Estimated GFR (MDRD) 56 L Glucose 197 H POC Capillary Glucose 185 H 193 H Calculated Osmolality 276 Calcium 7.8 L Corrected Calcium 9.2 Total Bilirubin 0.3 AST 21 ALT 33 Alkaline Phosphatase 121 Total Protein 5.4 L Albumin 2.6 L - Assessment (1) Cellulitis of left lower extremity Acute L03.116 - CELLULITIS OF LEFT LOWER LIMB Comment/Plan: Gradually improving. Continues to have erythema and induration of leg. Blood cultures negative to date, continue IV fluids, IV Unasyn. Will check MRSA screen if negative will discontinue vancomycin. (2) Poorly controlled type 2 diabetes mellitus Acute E11.65 - TYPE 2 DIABETES MELLITUS WITH HYPERGLYCEMIA Comment/Plan: Blood glucoses now less than 200. Continue to monitor. (3) Hypertension Acute I10 - ESSENTIAL (PRIMARY) HYPERTENSION Qualifiers: Hypertension type: essential hypertension Qualified Code(s): I10 - Essential (primary) hypertension Comment/Plan: Continue lisinopril 2.5 mg daily and monitor dose response and renal function; BP remains controlled, suspect patient is taking it for renal protection rather than for HTN. (4) Hyperlipidemia Chronic E78.5 - HYPERLIPIDEMIA, UNSPECIFIED Qualifiers: Hyperlipidemia type: mixed hyperlipidemia Qualified Code(s): E78.2 - Mixed hyperlipidemia Comment/Plan: She is currently on Simvastatin- will continue this for now, check fasting lipid profile. (5) Hyperlipidemia associated with type 2 diabetes mellitus Chronic E11.69 - TYPE 2 DIABETES MELLITUS WITH OTHER SPECIFIED COMPLICATION; E78.5 - HYPERLIPIDEMIA, UNSPECIFIED - Plan Continue current antibiotics. Consider dose adjustment in a.m.. Disposition Plan: Hopefully home. Case Care Discussed with: Patient, Family, Nursing Staff, Physical Therapy, Resource Management, Title I Paraprofessional Education/Counseling Given To: Patient Education/Counseling Given Regarding: Diagnosis, Treatment, Prognosis, Disposition Plan Total Time: 45 minutes. Critical Care: No Couseling Time (>50% in counseling/coordination): No
[2016-06-09] MEDS: MetFORMIN 1000 MG IMMED REL TAB PO SCH (16:40)
[2016-06-09] MEDS: ENOXAPARIN 60 MG/0.6 ML PFS SQ SCH (17:37)
[2016-06-09] MEDS: SIMVASTATIN 40 MG TAB PO SCH (21:13)
[2016-06-10] MEDS: NS 1,000 ML IV SCH ×3 (00:20→17:20)
[2016-06-10] MEDS: AMPICILLIN-SULBACTAM 3 GM in NS 100 ML IV SCH ×4 (03:42→21:16)
[2016-06-10] MEDS: SODIUM CHLORIDE 0.9% 3 ML FLUSH FLUSH SCH ×2 (04:54→17:20)
[2016-06-10] MEDS: REGULAR INSULIN 100 UNITS/ML - 3 ML VIAL SQ SCH ×4 (06:23→21:19)
[2016-06-10] MEDS: SITAGLIPTIN 50 MG TAB PO SCH (06:36)
[2016-06-10] MEDS: MetFORMIN 1000 MG IMMED REL TAB PO SCH ×2 (07:10→17:48)
[2016-06-10 07:18] LABS: MPV 7.9 fL (7.4-10.4)
[2016-06-10 07:32] LABS: BLOOD UREA NITROGEN 15 MG/DL (7-17); CALCULATED OSMOLALITY 274 MOs/Kg (270-290); CHLORIDE 103 mEq/L (98-107); GLUCOSE 126 mg/dL (70-99); SODIUM LEVEL 141 mEq/L (137-146)
[2016-06-10] MEDS: FLUTICASONE/SALMETEROL 250/50 DISKUS INH SCH ×2 (07:48→21:55)
--- NOTE | 2016-06-10 08:47 | DIRPT ---
CLINICAL DATA: Left calf pain and swelling for the past 3 days. Evaluate for DVT. EXAM: LEFT LOWER EXTREMITY VENOUS DOPPLER ULTRASOUND TECHNIQUE: Monahan-scale sonography with graded compression, as well as color Doppler and duplex ultrasound were performed to evaluate the lower extremity deep venous systems from the level of the common femoral vein and including the common femoral, femoral, profunda femoral, popliteal and calf veins including the posterior tibial, peroneal and gastrocnemius veins when visible. The superficial great saphenous vein was also interrogated. Spectral Doppler was utilized to evaluate flow at rest and with distal augmentation maneuvers in the common femoral, femoral and popliteal veins. COMPARISON: None. FINDINGS: Examination is degraded due to patient body habitus and poor sonographic window. Contralateral Common Femoral Vein: Respiratory phasicity is normal and symmetric with the symptomatic side. No evidence of thrombus. Normal compressibility. Common Femoral Vein: No evidence of thrombus. Normal compressibility, respiratory phasicity and response to augmentation. Saphenofemoral Junction: No evidence of thrombus. Normal compressibility and flow on color Doppler imaging. Profunda Femoral Vein: No evidence of thrombus. Normal compressibility and flow on color Doppler imaging. Femoral Vein: No evidence of thrombus. Normal compressibility, respiratory phasicity and response to augmentation. Popliteal Vein: No evidence of thrombus. Normal compressibility, respiratory phasicity and response to augmentation. Calf Veins: Not visualized secondary to patient body habitus. Superficial Great Saphenous Vein: No evidence of thrombus. Normal compressibility and flow on color Doppler imaging. Venous Reflux: None. Other Findings: Note is made of right benign-appearing left inguinal lymph node which is PICC the not enlarged by size criteria and maintains a benign fatty hilum (image 16). IMPRESSION: No evidence of DVT within the left lower extremity. Electronically Signed By: Rony Gonzalez M.D. On: 06/10/2016 08:44
[2016-06-10] MEDS: FUROSEMIDE 20 MG TAB PO SCH (10:16)
[2016-06-10] MEDS: LISINOPRIL 2.5 MG TAB PO SCH (10:16)
[2016-06-10] MEDS: POTASSIUM CHLORIDE 10 MEQ TABLET PO SCH (10:16)
[2016-06-10] MEDS ORDERED: Medication Special Instructions SCH (16:00)
--- NOTE | 2016-06-10 16:12 | GENMEDPROG ---
Subjective Note: Cellulitis area very slowly improving. She continues to have a significant amount of skin sloughing. Notes Reviewed: Yes: Events from last night noted and discussed with Clinical Staff Current Medication List: Reviewed Currently: Reports: Other (LLE pain). Denies: Cough, ZENG, SOB, Tobacco Use/Hx, Alcohol Hx, Abdominal Pain DVT Prophylaxis: Yes - Physical Examination Vital Signs and I&O: Last Vital Signs Temp 99.7 F 06/10/16 15:28 Pulse 60 06/10/16 15:28 Resp 18 06/10/16 15:28 BP 140/90 06/10/16 15:28 Pulse Ox 95 06/10/16 15:28 Oxygen Pulse Oxygen Saturation 95 O2 Device Nasal Cannula Oxygen Flow Rate 2 Fraction of Inspired Oxygen ( FIO2) Intake & Output 06/07/16 06/08/16 06/09/16 06/10/16 23:59 23:59 23:59 23:59 Intake Total 4265 2890 3112 2361 Output Total 3750 1950 2950 1450 Balance 515 940 162 911 Patient's weight 116.828 kg 117.027 kg General: Alert, Oriented x3, Cooperative, No acute distress, Obese HEENT: Normal, PERRLA, EOMI, Anicteric Sclera, Mucous membr. moist/pink Neck: Non-tender, Full range of motion, Normal Trachea alignment, Normal inspection, No Masses palpable, Supple Lymphatics: Normal Respiratory: Normal - CTA, Diminished Cardiovascular: Regular rate and rhythm, Normal S1, Normal S2, Good Pedal Pulses , PMI Not Lateralized, Chest Non Tender GI: Normal bowel sounds, Soft, Non tender, Obese Extremities/Musculoskeletal: Normal pulses, Edema, DJD, Other (minimal improvement in rash yet) Skin: Rash (persistent erythema and induration in circumferential fashion from ankle to proximal tibia on LLE) Neurological: Normal speech, Strength at 5/5 X4 ext, Normal tone, Cranial nerves 3-12 NL Psych/Mental Status: Appropriate, Normal Affect, Cooperative Lab/DI/Studies Reviewed: LEFT LOWER EXTREMITY VENOUS DOPPLER ULTRASOUND TECHNIQUE: Monahan-scale sonography with graded compression, as well as color Doppler and duplex ultrasound were performed to evaluate the lower extremity deep venous systems from the level of the common femoral vein and including the common femoral, femoral, profunda femoral, popliteal and calf veins including the posterior tibial, peroneal and gastrocnemius veins when visible. The superficial great saphenous vein was also interrogated. Spectral Doppler was utilized to evaluate flow at rest and with distal augmentation maneuvers in the common femoral, femoral and popliteal veins. COMPARISON: None. FINDINGS: Examination is degraded due to patient body habitus and poor sonographic window. Contralateral Common Femoral Vein: Respiratory phasicity is normal and symmetric with the symptomatic side. No evidence of thrombus. Normal compressibility. Common Femoral Vein: No evidence of thrombus. Normal compressibility, respiratory phasicity and response to augmentation. Saphenofemoral Junction: No evidence of thrombus. Normal compressibility and flow on color Doppler imaging. Profunda Femoral Vein: No evidence of thrombus. Normal compressibility and flow on color Doppler imaging. Femoral Vein: No evidence of thrombus. Normal compressibility, respiratory phasicity and response to augmentation. Popliteal Vein: No evidence of thrombus. Normal compressibility, respiratory phasicity and response to augmentation. Calf Veins: Not visualized secondary to patient body habitus. Superficial Great Saphenous Vein: No evidence of thrombus. Normal compressibility and flow on color Doppler imaging. Venous Reflux: None. Other Findings: Note is made of right benign-appearing left inguinal lymph node which is PICC the not enlarged by size criteria and maintains a benign fatty hilum (image 16). IMPRESSION: No evidence of DVT within the left lower extremity. Electronically Signed By: Rony Gonzalez M.D. On: 06/10/2016 08:44 Abnormal Lab Results 06/09/16 06/09/16 06/10/16 16:11 21:07 05:34 WBC RBC Hgb Hct Glucose POC Capillary Glucose 183 H 173 H 134 H Calcium Magnesium 06/10/16 06/10/16 06/10/16 06:55 06:55 11:34 WBC 12.1 H RBC 2.97 L Hgb 8.7 L D Hct 26.4 L Glucose 126 H POC Capillary Glucose 174 H Calcium 8.0 L Magnesium 1.40 L - Assessment (1) Cellulitis of left lower extremity Acute L03.116 - CELLULITIS OF LEFT LOWER LIMB Comment/Plan: Gradually improving. Continues to have erythema and induration of leg. Blood cultures negative to date, continue IV fluids, IV Unasyn. Vancomycin has been discontinued. Lower extremity Doppler did not show any acute deep venous thrombosis. Continue Unasyn. (2) Poorly controlled type 2 diabetes mellitus Acute E11.65 - TYPE 2 DIABETES MELLITUS WITH HYPERGLYCEMIA Comment/Plan: Blood glucoses now less than 200. Continue to monitor. (3) Hypertension Acute I10 - ESSENTIAL (PRIMARY) HYPERTENSION Qualifiers: Hypertension type: essential hypertension Qualified Code(s): I10 - Essential (primary) hypertension Comment/Plan: Continue lisinopril 2.5 mg daily and monitor dose response and renal function; BP remains controlled, suspect patient is taking it for renal protection rather than for HTN. Blood pressures have began to creep up today will monitor and consider increasing lisinopril if indicated (4) Hyperlipidemia Chronic E78.5 - HYPERLIPIDEMIA, UNSPECIFIED Qualifiers: Hyperlipidemia type: mixed hyperlipidemia Qualified Code(s): E78.2 - Mixed hyperlipidemia Comment/Plan: She is currently on Simvastatin- will continue this for now, check fasting lipid profile. (5) Hyperlipidemia associated with type 2 diabetes mellitus Chronic E11.69 - TYPE 2 DIABETES MELLITUS WITH OTHER SPECIFIED COMPLICATION; E78.5 - HYPERLIPIDEMIA, UNSPECIFIED - Plan Continue current antibiotics. Consider dose adjustment in a.m.. Medical team conference was held on the patient discussion of diagnosis treatments plans and prognosis as well as disposition. In addition to myself the following team members were present nursing, physical therapy, speech therapy, occupational therapy, case management, social work, nutrition, bus company manager , palliative care, and home health nursing. Input from each discipline was recieved and is incorporated in the plan of care in the medical record as well as in the plans in the progress notes. Disposition Plan: Hopefully home. Case Care Discussed with: Patient, Nursing Staff Education/Counseling Given To: Patient, Family Member Education/Counseling Given Regarding: Diagnosis, Treatment, Prognosis, Follow Up , Disposition Plan Total Time: 45 minutes Critical Care: No Couseling Time (>50% in counseling/coordination): No
[2016-06-10] MEDS: ENOXAPARIN 60 MG/0.6 ML PFS SQ SCH (17:15)
[2016-06-10] MEDS: SIMVASTATIN 40 MG TAB PO SCH (21:16)
[2016-06-11] MEDS: NS 1,000 ML IV SCH ×3 (02:34→16:42)
[2016-06-11] MEDS: AMPICILLIN-SULBACTAM 3 GM in NS 100 ML IV SCH ×4 (02:34→21:35)
[2016-06-11] MEDS: SODIUM CHLORIDE 0.9% 3 ML FLUSH FLUSH SCH ×2 (03:44→16:40)
[2016-06-11] MEDS: REGULAR INSULIN 100 UNITS/ML - 3 ML VIAL SQ SCH ×4 (06:02→20:26)
[2016-06-11] MEDS: SITAGLIPTIN 50 MG TAB PO SCH (06:04)
[2016-06-11] MEDS: MetFORMIN 1000 MG IMMED REL TAB PO SCH ×2 (06:04→16:41)
[2016-06-11 06:23] VITALS: BMI 44.4
[2016-06-11] MEDS: FLUTICASONE/SALMETEROL 250/50 DISKUS INH SCH ×2 (08:17→19:59)
[2016-06-11] MEDS: LISINOPRIL 2.5 MG TAB PO SCH (08:46)
[2016-06-11] MEDS: POTASSIUM CHLORIDE 10 MEQ TABLET PO SCH (08:46)
[2016-06-11] MEDS: FUROSEMIDE 20 MG TAB PO SCH (08:46)
--- NOTE | 2016-06-11 17:26 | GENMEDPROG ---
Subjective Note: Patient starting to feel better pain is decreasing. Area of erythema is decreasing as well. Notes Reviewed: Yes: Events from last night noted and discussed with Clinical Staff Current Medication List: Reviewed Currently: Reports: Other (LLE pain). Denies: Cough, ZENG, SOB, Tobacco Use/Hx, Alcohol Hx, Abdominal Pain DVT Prophylaxis: Yes - Physical Examination Vital Signs and I&O: Last Vital Signs Temp 97.5 F 06/11/16 14:00 Pulse 69 06/11/16 14:00 Resp 18 06/11/16 14:00 BP 121/58 L 06/11/16 14:00 Pulse Ox 97 06/11/16 14:00 Oxygen Pulse Oxygen Saturation 97 O2 Device Nasal Cannula Oxygen Flow Rate 2 Fraction of Inspired Oxygen ( FIO2) Intake & Output 06/08/16 06/09/16 06/10/16 06/11/16 23:59 23:59 23:59 23:59 Intake Total 2890 3112 3006 2440 Output Total 1950 2950 2200 350 Balance 940 457 571 3904 Patient's weight 117.027 kg 121.2 kg General: Alert, Oriented x3, Cooperative, No acute distress, Obese HEENT: Normal, PERRLA, EOMI, Anicteric Sclera, Mucous membr. moist/pink Neck: Non-tender, Full range of motion, Normal Trachea alignment, Normal inspection, No Masses palpable, Supple Lymphatics: Normal Respiratory: Normal - CTA, Diminished Cardiovascular: Regular rate and rhythm, Normal S1, Normal S2, Good Pedal Pulses , PMI Not Lateralized, Chest Non Tender GI: Normal bowel sounds, Soft, Non tender, Obese Extremities/Musculoskeletal: Normal pulses, Edema, DJD, Other (minimal improvement in rash yet) Skin: Rash (persistent erythema and induration in circumferential fashion from ankle to proximal tibia on LLE) Neurological: Normal speech, Strength at 5/5 X4 ext, Normal tone, Cranial nerves 3-12 NL Psych/Mental Status: Appropriate, Normal Affect, Cooperative Lab/DI/Studies Reviewed: Abnormal Lab Results 06/10/16 06/11/16 06/11/16 20:38 05:51 11:30 POC Capillary Glucose 148 H 132 H 173 H 06/11/16 16:22 POC Capillary Glucose 174 H - Assessment (1) Cellulitis of left lower extremity Acute L03.116 - CELLULITIS OF LEFT LOWER LIMB Comment/Plan: Switch data oral Augmentin in a.m. and plan discharge tomorrow. (2) Poorly controlled type 2 diabetes mellitus Acute E11.65 - TYPE 2 DIABETES MELLITUS WITH HYPERGLYCEMIA Comment/Plan: Blood glucoses now less than 200. Continue to monitor. (3) Hypertension Acute I10 - ESSENTIAL (PRIMARY) HYPERTENSION Qualifiers: Hypertension type: essential hypertension Qualified Code(s): I10 - Essential (primary) hypertension Comment/Plan: Blood pressure is excellent on current home dose of lisinopril continue present care. (4) Hyperlipidemia Chronic E78.5 - HYPERLIPIDEMIA, UNSPECIFIED Qualifiers: Hyperlipidemia type: mixed hyperlipidemia Qualified Code(s): E78.2 - Mixed hyperlipidemia Comment/Plan: She is currently on Simvastatin- will continue this for now, check fasting lipid profile. (5) Hyperlipidemia associated with type 2 diabetes mellitus Chronic E11.69 - TYPE 2 DIABETES MELLITUS WITH OTHER SPECIFIED COMPLICATION; E78.5 - HYPERLIPIDEMIA, UNSPECIFIED - Plan Continue current antibiotics. Medical team conference was held on the patient discussion of diagnosis treatments plans and prognosis as well as disposition. In addition to myself the following team members were present nursing, physical therapy, speech therapy, occupational therapy, case management, social work, nutrition, sap technical architect , palliative care, and home health nursing. Input from each discipline was recieved and is incorporated in the plan of care in the medical record as well as in the plans in the progress notes. Disposition Plan: Hopefully home in a.m.. Case Care Discussed with: Patient, Nursing Staff Education/Counseling Given To: Patient Education/Counseling Given Regarding: Diagnosis, Treatment, Prognosis, Disposition Plan Total Time: 45 minutes Critical Care: No Couseling Time (>50% in counseling/coordination): No
[2016-06-11] MEDS ORDERED: ENOXAPARIN 60 MG/0.6 ML PFS SQ SCH (18:00)
[2016-06-11] MEDS: SIMVASTATIN 40 MG TAB PO SCH (21:36)
[2016-06-12] MEDS: AMPICILLIN-SULBACTAM 3 GM in NS 100 ML IV SCH ×3 (03:23→16:36)
[2016-06-12] MEDS: SODIUM CHLORIDE 0.9% 3 ML FLUSH FLUSH SCH (03:29)
[2016-06-12] MEDS: REGULAR INSULIN 100 UNITS/ML - 3 ML VIAL SQ SCH ×2 (06:21→11:36)
[2016-06-12] MEDS: MetFORMIN 1000 MG IMMED REL TAB PO SCH (06:24)
[2016-06-12] MEDS: SITAGLIPTIN 50 MG TAB PO SCH (06:24)
[2016-06-12 07:10] LABS: AUTOMATED BASOPHIL 0.7 % (0-2); AUTOMATED EOSINOPHIL 2.4 % (0-5); AUTOMATED LYMPH 9.2 % (17-44); AUTOMATED MONOCYTE 6.6 % (3-10); AUTOMATED NEUTROPHIL 81.1 % (45-76); MPV 8.3 fL (7.4-10.4)
[2016-06-12 07:18] LABS: BLOOD UREA NITROGEN 11 MG/DL (7-17); CALCIUM 8.1 MG/DL (8.4-10.2); CALCULATED OSMOLALITY 275 MOs/Kg (270-290); CHLORIDE 102 mEq/L (98-107); GLUCOSE 111 mg/dL (70-99); SODIUM LEVEL 143 mEq/L (137-146)
[2016-06-12] MEDS: FUROSEMIDE 20 MG TAB PO SCH (08:07)
[2016-06-12] MEDS: LISINOPRIL 2.5 MG TAB PO SCH (08:08)
[2016-06-12] MEDS: POTASSIUM CHLORIDE 10 MEQ TABLET PO SCH (08:08)
[2016-06-12] MEDS: FLUTICASONE/SALMETEROL 250/50 DISKUS INH SCH (08:37)
[2016-06-12] MEDS: NS 1,000 ML IV SCH (11:10)
--- NOTE | 2016-06-12 13:37 | PCM.DCS92 ---
- Final/Secondary Discharge Diagnosis (1) Cellulitis of left lower extremity Acute L03.116 - CELLULITIS OF LEFT LOWER LIMB Present on Admission: Yes Comment: I have reviewed culture data will switch to Keflex 500 mg p.o. q.6 for the next 10 days and discharged home. (2) Poorly controlled type 2 diabetes mellitus Acute E11.65 - TYPE 2 DIABETES MELLITUS WITH HYPERGLYCEMIA Present on Admission: Yes Comment: Blood glucoses now less than 200. Continue to monitor. (3) Hypertension Acute I10 - ESSENTIAL (PRIMARY) HYPERTENSION Present on Admission: Yes essential hypertension I10 - Essential (primary) hypertension Comment: Blood pressure is excellent on current home dose of lisinopril continue present care. (4) Hyperlipidemia Chronic E78.5 - HYPERLIPIDEMIA, UNSPECIFIED Present on Admission: Yes mixed hyperlipidemia E78.2 - Mixed hyperlipidemia Comment: She is currently on Simvastatin- will continue this for now, check fasting lipid profile. (5) Hyperlipidemia associated with type 2 diabetes mellitus Chronic E11.69 - TYPE 2 DIABETES MELLITUS WITH OTHER SPECIFIED COMPLICATION; E78.5 - HYPERLIPIDEMIA, UNSPECIFIED Present on Admission: Yes Discharge Disposition: Home Discharge Condition: Fair Cognitive Discharge Status: Unimpaired Fuctional Discharge Status: Independent Forms: Patient Discharge Instructions, ED Discharge Instructions Physician Follow up/Referrals: Ismael Moran MD [Staff Physician] - 06/16/16 3:00 pm Dulce Mixon NP [Primary Care Provider] - One Week Home Medications / New Prescriptions: No Action Potassium Chloride [Klor-Con M10] 10 meq PO DAILY Lisinopril [Zestril] 2.5 mg PO DAILY Aspirin (Enteric Coated) [Ecotrin] 81 mg PO DAILY Albuterol Sulfate [Ventolin Hfa] 1 - 2 puff INH Q4H PRN PRN Reason: SHORTNESS OF BREATH Simvastatin 40 mg PO QHS Metformin HCl 1,000 mg PO BID Furosemide [Lasix] 20 mg PO DAILY Fluticasone/Salmeterol [Advair 250-50] 1 puff INH BID Discharge Home Medication List Albuterol Sulfate [Ventolin Hfa] 1 - 2 puff INH Q4H PRN 06/04/16 [History Confirmed 06/04/16] Aspirin (Enteric Coated) [Halfprin] 81 mg PO DAILY 06/04/16 [History Confirmed 06/04/16] Fluticasone/Salmeterol [Advair 250-50] 1 puff INH BID 06/04/16 [History Confirmed 06/04/16] Furosemide [Lasix] 20 mg PO DAILY 06/04/16 [History Confirmed 06/04/16] Lisinopril [Prinivil] 2.5 mg PO DAILY 06/04/16 [History Confirmed 06/04/16] Metformin HCl 1,000 mg PO BID 06/04/16 [History Confirmed 06/04/16] Potassium Chloride [Klor-Con M10] 10 meq PO DAILY 06/04/16 [History Confirmed ] Simvastatin 40 mg PO QHS 06/04/16 [History Confirmed 06/04/16] Cephalexin Monohydrate [Keflex] 500 mg PO Q6H #40 cap 06/12/16 [Rx] Sitagliptin Phosphate [Januvia] 100 mg PO DAILY@0700 #30 tab 06/12/16 [Rx] New Discharge Medications (Rx) Cephalexin Monohydrate [Keflex] 500 mg PO Q6H #40 cap 06/12/16 [Rx] Sitagliptin Phosphate [Januvia] 100 mg PO DAILY@0700 #30 tab 06/12/16 [Rx] O2 Device: Nasal Cannula Oxygen Flow Rate: 2 Oxygen to be used after Discharge: Continuous Diet at Discharge: As Tolerated, Heart Healthy, Diabetic Activity: No Restrictions, As Tolerated, Limited Call Office For: Worsening Symptoms, Fever over 100.5, Weight Gain (see below), Pain Uncontrolled By Meds - DC Summary Notes Hospital Course Note:: Discharge summary on patient named MARCELINO KENT admitted to [facility] on 06/04/16 by Eda Kelly MD. Date of discharge is []. 60-year-old female admitted to our facility with cellulitis. He was very slow to improve and she required extended treatment. She was tested for MRSA and was negative and therefore vancomycin was discontinued. At this point patient is stable for discharge home she will discharge home on Keflex 500 mg p.o. q.6 hours for 10 days patient is reached maximal benefit of hospitalization. She is stable for discharge home. Total Time: 45 min - Physical Exam Vital Signs: Last Vital Signs Temp 98 F 06/12/16 06:00 Pulse 83 06/12/16 08:06 Resp 20 06/12/16 06:00 BP 144/71 06/12/16 08:06 Pulse Ox 92 06/12/16 08:34 Oxygen Pulse Oxygen Saturation 92 O2 Device Nasal Cannula Oxygen Flow Rate 2 Fraction of Inspired Oxygen ( FIO2) Constitutional: No apparent distress, Alert Oriented to: Time, Person, Place - HEENT Head: Normal Eye: Normal (PERRL: EOMI) Oropharynx: Normal. negative: Drooling, Exudate, Red Tympanic Membrane: Normal ENT EAC: Normal TMJ: Normal Nose: negative: Bleeding, Congestion, Discharge - Respiratory/Cardiovascular Respiratory: Normal - CTA, Diminished - GI Auscultation: Normal Palpation: Normal Tenderness: Non tender Willett's Sign: Negative Rectal Exam: Deferred - Musculoskeletal Back: Normal Extremities: Pedal Pulse (normal), Other (erythematous indurated confluent rash from dorsum of L foot to proximal tibia, encircles most of calf, sharply demarcated, tender to touch). negative: Edema (none on right leg, no rash on right leg) - Integumentary Lymphatics: Normal - Neurologic Memory Impaired: Normal Cerebellar: Normal Mood Description: Anxious Thought: Coherent Perception: Normal - Other Exam Other Exam Findings: Laboratory Results - last 24 hr 06/11/16 06/11/16 06/12/16 16:22 20:24 05:30 WBC 10.5 RBC 2.94 L Hgb 8.6 L Hct 26.4 L MCV 90 MCH 29.4 MCHC 32.7 L RDW 14.7 H Plt Count 375 MPV 8.3 Neut % (Auto) 81.1 H Lymph % (Auto) 9.2 L Hooker % (Auto) 6.6 Eos % (Auto) 2.4 Baso % (Auto) 0.7 Absolute Neuts (auto) 8.51 H Absolute Lymphs (auto) 0.95 Sodium Potassium Chloride Carbon Dioxide Anion Gap BUN Creatinine Estimated GFR (MDRD) Glucose POC Capillary Glucose 174 H 145 H Calculated Osmolality Calcium Magnesium 06/12/16 06/12/16 06/12/16 05:30 06:03 11:24 WBC RBC Hgb Hct MCV MCH MCHC RDW Plt Count MPV Neut % (Auto) Lymph % (Auto) Hooker % (Auto) Eos % (Auto) Baso % (Auto) Absolute Neuts (auto) Absolute Lymphs (auto) Sodium 143 Potassium 4.3 Chloride 102 Carbon Dioxide 31 Anion Gap 14 BUN 11 Creatinine 0.90 Estimated GFR (MDRD) > 60 Glucose 111 H POC Capillary Glucose 121 H 131 H Calculated Osmolality 275 Calcium 8.1 L Magnesium 1.40 L CLINICAL DATA: Left calf pain and swelling for the past 3 days. Evaluate for DVT. EXAM: LEFT LOWER EXTREMITY VENOUS DOPPLER ULTRASOUND TECHNIQUE: Monahan-scale sonography with graded compression, as well as color Doppler and duplex ultrasound were performed to evaluate the lower extremity deep venous systems from the level of the common femoral vein and including the common femoral, femoral, profunda femoral, popliteal and calf veins including the posterior tibial, peroneal and gastrocnemius veins when visible. The superficial great saphenous vein was also interrogated. Spectral Doppler was utilized to evaluate flow at rest and with distal augmentation maneuvers in the common femoral, femoral and popliteal veins. COMPARISON: None. FINDINGS: Examination is degraded due to patient body habitus and poor sonographic window. Contralateral Common Femoral Vein: Respiratory phasicity is normal and symmetric with the symptomatic side. No evidence of thrombus. Normal compressibility. Common Femoral Vein: No evidence of thrombus. Normal compressibility, respiratory phasicity and response to augmentation. Saphenofemoral Junction: No evidence of thrombus. Normal compressibility and flow on color Doppler imaging. Profunda Femoral Vein: No evidence of thrombus. Normal compressibility and flow on color Doppler imaging. Femoral Vein: No evidence of thrombus. Normal compressibility, respiratory phasicity and response to augmentation. Popliteal Vein: No evidence of thrombus. Normal compressibility, respiratory phasicity and response to augmentation. Calf Veins: Not visualized secondary to patient body habitus. Superficial Great Saphenous Vein: No evidence of thrombus. Normal compressibility and flow on color Doppler imaging. Venous Reflux: None. Other Findings: Note is made of right benign-appearing left inguinal lymph node which is PICC the not enlarged by size criteria and maintains a benign fatty hilum (image 16). IMPRESSION: No evidence of DVT within the left lower extremity. Electronically Signed By: Rony Gonzalez M.D. On: 06/10/2016 08:44
[2016-06-12 13:51] VITALS: BP 123/58; PULSE 71; TEMP 97.5
== END 2016-06-12 16:56 | disposition home health service (06) | DRG 603 ==
LOC: ED 14:12 → MPS3 17:39
PROVIDERS: ADMIT Family Medicine; ATTEND Hospitalist
DX: L03.116 Cellulitis of left lower limb (principal); E11.69 Type 2 diabetes mellitus with other specified complication; I11.0 Hypertensive heart disease with heart failure; I50.9 Heart failure, unspecified; Z23 Encounter for immunization; E11.65 Type 2 diabetes mellitus with hyperglycemia; E78.2 Mixed hyperlipidemia; E66.9 Obesity, unspecified; M19.90 Unspecified osteoarthritis, unspecified site; K21.9 Gastro-esophageal reflux disease without esophagitis; Z79.82 Long term (current) use of aspirin; Z79.84 Long term (current) use of oral hypoglycemic drugs; Z83.3 Family history of diabetes mellitus
CPT/HCPCS: 36415; 51798; 80048; 80053; 80061; 80202; 81001; 82043; 82962; 83036; 83605; 83735; 85007; 85025; 85027; 87040; 87086; 87641; 90471; 90656; 90732; 94640; 96365; 96366; 96372; 97162; 99283; J0295; J0690; J1650; J3370; J3490; J7030; J7060